=== PATIENT | male | born 1975 | race Caucasian/White ===

== ENCOUNTER 2018-01-03 22:03 | Inpatient (IN) ==
[2018-01-03 22:27] LABS: Basophils # 0.1 K/mcL (0.0-0.2); Basophils % 0.6 %; Eosinophils # 0.3 K/mcL (0.0-0.6); Eosinophils % 2.3 %; Hematocrit 45.6 % (37.5-50.1); Immature Granulocytes % 0.4 % (0-4); Lymphocytes # 3.2 K/mcL (0.6-4.6); Mean Corpuscular HGB Conc 35.1 g/dL (31.6-35.5); Mean Corpuscular Hemoglobin 31.2 pg (28.0-33.3); Mean Corpuscular Volume 88.9 fL (83.0-100.0); Mean Platelet Volume 9.9 fL (9.4-12.4); Monocytes # 0.8 K/mcL (0.0-1.3); Monocytes % 6.2 %; Platelet Count 266 K/mcL (140-400); Red Blood Count 5.13 M/mcL (4.19-5.50); Red Cell Distribution Width 13.3 % (11.5-14.5); Segmented Neutrophils % 64.5 %
[2018-01-03 22:56] LABS: BUN/Creatinine Ratio 11 (6-26); Blood Urea Nitrogen 12 mg/dL (6-20); Calcium 9.8 mg/dL (8.6-10.3); Carbon Dioxide 23 mEq/L (23-29); Chloride 105 mEq/L (98-107); Glucose 144 mg/dL (70-105); Osmolality,Calculated 288 (280-300); Potassium 3.3 mEq/L (3.5-5.1); Sodium 138 mEq/L (136-145); eGFR For Non-African Americans > 60 (> 60)
[2018-01-03 22:57] LABS: Troponin I 0.09 ng/mL (< 0.04)
[2018-01-03] MEDS ORDERED: Nitroglycerin 0.4 MG TAB.SUBL SL PRN (22:58)
[2018-01-03] MEDS ORDERED: Aspirin 81 MG TAB.CHEW PO ONE (22:58)
--- NOTE | 2018-01-03 22:58 | Emergency Department Note ---
Disposition Clinical Impression: Elevated troponin Chest pain Qualifiers: Chest pain type: unspecified Qualified Code(s): R07.9 - Chest pain, unspecified Disposition: Admitted As Inpatient Condition: Good Chest Pain HPI - General Chief Complaint: ED Chest Pain Stated Complaint: Chest Pains Time Seen by Provider: 01/03/18 22:06 Source: patient, family Mode of arrival: private vehicle Limitations: no limitations Vital Signs Reviewed: Yes Nursing Notes Reviewed: Yes - History of Present Illness HPI Narrative: 42-year-old male history of hypertension, reports prior TX without intervention to presents to the ER due to chest pain. Symptoms began around 8 PM this evening. States he was outside in the garden for less than an hour picking green beans. Symptoms across the top of his chest as a pressure. Denies any associated symptoms. No history of diabetes, hyperlipidemia. He does smoke. He was admitted in 2011 for chest pain without a left heart catheterization. No other complaints. Pt complaint: chest pain Onset (ago): hour(s) Time: 20:00 Duration: constant Onset: during rest Pain Location: substernal Severity: moderate Severity scale (1-10): 10 Quality: heaviness Pain Radiation: none Improves with: nothing Worsens with: nothing Associated symptoms: Denies: nausea, vomiting, diaphoresis, dyspnea Treatments prior to arrival chest pain: none - Related Data On Oral Contraceptives: No Allergies Allergy/AdvReac Type Severity Reaction Status Date / Time No Known Allergies Allergy Verified 11/20/16 20:47 All systems ED: reviewed and negative except as stated. Cardiovascular: Reports: chest pain Respiratory: Denies: dyspnea Gastrointestinal: Denies: abdominal pain, nausea, vomiting Chest Pain PMH - Past Medical History Medical history: Reports: hypertension - Social History Smoking Status: Current every day smoker Alcohol use: Reports: rarely Drug use: Reports: none Physical Exam - General Limitations: no limitations General appearance: alert, in no apparent distress - Head Head exam: atraumatic, normocephalic - Eye Eye exam: Present: normal appearance - ENT ENT exam: normal exam - Neck Neck exam: Present: normal inspection - Chest Chest inspection: Present: normal inspection, symmetric chest wall rise. Absent : tenderness - Respiratory Respiratory exam: Present: normal lung sounds bilaterally - Cardiovascular Cardiovascular exam: Present: regular rate, normal rhythm, normal heart sounds - Abdominal Exam Abdominal exam: Present: soft, Non-Tender. Absent: tenderness - Extremities Exam Extremities exam: Present: normal inspection, full ROM - Expanded Upper Extremity Exam Shoulder exam: Present: normal inspection, full ROM Arm exam: Present: normal inspection, full ROM Elbow exam: Present: normal inspection, full ROM Forearm/Wrist exam: Present: normal inspection, full ROM Hand exam: Present: normal inspection, full ROM - Expanded Lower Extremity Exam Hip/Pelvis exam: Present: normal inspection, full ROM Upper leg exam: Present: normal inspection, full ROM Knee exam: Present: normal inspection, full ROM Lower leg exam: Present: normal inspection, full ROM Ankle exam: Present: normal inspection, full ROM Foot/toe exam: Present: normal inspection, full ROM - Skin Skin exam: Present: warm, dry Course Course Narrative: Patient seen and examined. Vital signs reviewed. EKG, chest x-ray, labs including troponin. Aspirin and nitroglycerin. - Reevaluation(s) Reevaluation #1: Elevated troponin. Discussed with patient. Agreeable with staying. Admission to the hospital service. Vital Signs Temperature 97.5 F L 01/03/18 22:04 Pulse Rate 79 01/03/18 22:04 Respiratory Rate 20 01/03/18 22:04 Blood Pressure 205/98 01/03/18 22:04 O2 Sat by Pulse Oximetry 99 01/03/18 22:04 Temperature 97.5 F L 01/03/18 22:18 Pulse Rate 71 01/03/18 22:58 Respiratory Rate 16 01/03/18 22:58 Blood Pressure 149/85 01/03/18 22:58 O2 Sat by Pulse Oximetry 94 01/03/18 22:58 Oxygen Delivery Oxygen Delivery Room Air Chest Pain - Lab Data Lab results reviewed: Yes I reviewed the patient's lab results. Result diagrams: 01/03/18 22:10 01/03/18 22:10 Lab Results 01/03/18 01/03/18 Range/Units 22:10 22:10 WBC 12.4 H (4.3-11.1) K/mcL RBC 5.13 (4.19-5.50) M/mcL Hgb 16.0 (12.9-16.9) g/dL Hct 45.6 (37.5-50.1) % MCV 88.9 (83.0-100.0) fL MCH 31.2 (28.0-33.3) pg MCHC 35.1 (31.6-35.5) g/dL RDW 13.3 (11.5-14.5) % Plt Count 266 (140-400) K/mcL MPV 9.9 (9.4-12.4) fL Immature Gran % 0.4 (0-4) % Seg Neutrophils % 64.5 % Lymphocytes % 26.0 % Monocytes % 6.2 % Eosinophils % 2.3 % Basophils % 0.6 % Neutrophils # 8.0 (1.6-8.9) K/mcL Lymphocytes # 3.2 (0.6-4.6) K/mcL Monocytes # 0.8 (0.0-1.3) K/mcL Eosinophils # 0.3 (0.0-0.6) K/mcL Basophils # 0.1 (0.0-0.2) K/mcL Sodium 138 (136-145) mEq/L Potassium 3.3 L (3.5-5.1) mEq/L Chloride 105 (98-107) mEq/L Carbon Dioxide 23 (23-29) mEq/L BUN 12 (6-20) mg/dL Creatinine 1.10 (0.70-1.30) mg/dL Est GFR ( Amer) > 60 (> 60) Est GFR (Non-Af Amer) > 60 (> 60) BUN/Creatinine Ratio 11 (6-26) Glucose 144 H (70-105) mg/dL Calculated Osmolality 288 (280-300) Calcium 9.8 (8.6-10.3) mg/dL Troponin I 0.09 H* (< 0.04) ng/mL - Radiology Data Radiology results reviewed: Yes I reviewed the patient's radiology results. Chest X-Ray 01/03/18 22:07 IMPRESSION: Clear lungs. D/ / Terrell Alvarez MD / Terrell Alvarez MD Interpreting Provider: Terrell Alvarez MD - EKG Data EKG attestation: Yes I reviewed and interpreted this EKG. EKG results narrative: EKG demonstrates sinus rhythm with a rate of 78 bpm. Normal axis. Normal intervals. Normal R-wave progression. No gross ST elevations or depressions. No acute ischemic findings. No significant changes from prior EKG dated . Heart Score - Score History: Moderately Suspicious EKG: Normal Age: Less than 45 Risk Factors: 1-2 risk factors Troponin: 1-3x normal limit HEART Score Total: 3 S.B.A.R. - S.B.A.R. Situation: Demographics, MOA Background: Presenting Complaint, Relevant PMH, Meds, & Allergies Assessment: Vital Signs, Course and respsone to treatment, Exam Concerns, Patient/Family Expectation, Pertinant Lab Results Recommendation: Barrier(s) to disposition, Recommendation based on pending studies, treatments, or consults S.B.A.RKarol Report Given to: Dr. Imelda EscalanteBKarolAMike Repor Time: 01:04
--- NOTE | 2018-01-04 01:08 | Emergency Department Note ---
Disposition Clinical Impression: Elevated troponin Chest pain Qualifiers: Chest pain type: unspecified Qualified Code(s): R07.9 - Chest pain, unspecified Disposition: Admitted As Inpatient Condition: Good Referrals: Donya Kim MD [Primary Care Provider] - Forms: ED Satisfaction Letter General Adult HPI - General Chief complaint: ED Chest Pain Stated complaint: Chest Pains Time Seen by Provider: 01/03/18 22:06 Source: patient, family Mode of arrival: private vehicle Limitations: no limitations Nursing Notes Reviewed: Yes Vital Signs Reviewed: Yes - History of Present Illness Pain Scale: 10 - Related Data Allergies Allergy/AdvReac Type Severity Reaction Status Date / Time No Known Allergies Allergy Verified 11/20/16 20:47 Cardiovascular: Reports: chest pain Respiratory: Denies: dyspnea Gastrointestinal: Denies: abdominal pain, nausea, vomiting Past Medical History - Past Medical History Medical history: Reports: hypertension - Social History Smoking Status: Current every day smoker Smokeless Tobacco Status: No Alcohol use: Reports: rarely Drug use: Reports: none Physical Exam - General Limitations: no limitations General appearance: alert, in no apparent distress Course Vital Signs Temperature 97.5 F L 01/03/18 22:04 Pulse Rate 79 01/03/18 22:04 Respiratory Rate 20 01/03/18 22:04 Blood Pressure 205/98 01/03/18 22:04 O2 Sat by Pulse Oximetry 99 01/03/18 22:04 Temperature 97.5 F L 01/03/18 22:18 Pulse Rate 71 01/03/18 22:58 Respiratory Rate 16 01/03/18 22:58 Blood Pressure 149/85 01/03/18 22:58 O2 Sat by Pulse Oximetry 94 01/03/18 22:58 Oxygen Delivery Oxygen Delivery Room Air Medical Decision Making - Lab Data Lab results reviewed: Yes I reviewed the patient's lab results. Result diagrams: 01/03/18 22:10 01/03/18 22:10 Lab Results 01/03/18 01/03/18 Range/Units 22:10 22:10 WBC 12.4 H (4.3-11.1) K/mcL RBC 5.13 (4.19-5.50) M/mcL Hgb 16.0 (12.9-16.9) g/dL Hct 45.6 (37.5-50.1) % MCV 88.9 (83.0-100.0) fL MCH 31.2 (28.0-33.3) pg MCHC 35.1 (31.6-35.5) g/dL RDW 13.3 (11.5-14.5) % Plt Count 266 (140-400) K/mcL MPV 9.9 (9.4-12.4) fL Immature Gran % 0.4 (0-4) % Seg Neutrophils % 64.5 % Lymphocytes % 26.0 % Monocytes % 6.2 % Eosinophils % 2.3 % Basophils % 0.6 % Neutrophils # 8.0 (1.6-8.9) K/mcL Lymphocytes # 3.2 (0.6-4.6) K/mcL Monocytes # 0.8 (0.0-1.3) K/mcL Eosinophils # 0.3 (0.0-0.6) K/mcL Basophils # 0.1 (0.0-0.2) K/mcL Sodium 138 (136-145) mEq/L Potassium 3.3 L (3.5-5.1) mEq/L Chloride 105 (98-107) mEq/L Carbon Dioxide 23 (23-29) mEq/L BUN 12 (6-20) mg/dL Creatinine 1.10 (0.70-1.30) mg/dL Est GFR ( Amer) > 60 (> 60) Est GFR (Non-Af Amer) > 60 (> 60) BUN/Creatinine Ratio 11 (6-26) Glucose 144 H (70-105) mg/dL Calculated Osmolality 288 (280-300) Calcium 9.8 (8.6-10.3) mg/dL Troponin I 0.09 H* (< 0.04) ng/mL - Radiology Data Radiology results reviewed: Yes I reviewed the patient's radiology results. Chest X-Ray 01/03/18 22:07 IMPRESSION: Clear lungs. D/ / Terrell Alvarez MD / Terrell Alvarez MD Interpreting Provider: Terrell Alvarez MD - EKG Data EKG #1 EKG attestation: Yes I reviewed and interpreted this EKG. EKG results narrative: EKG shows a normal sinus rhythm with ventricular rate is 78. No acute ST segment elevation or depression noted. No arrhythmia or ectopy. Attestation Statement - Attestation Attestation: I, Steven Obregon MD, personally evaluated this patient and discussed their management with the resident physician. I reviewed the resident's note and agree with the documented findings, medical decision making, and plan of care. 42-year-old male presents to the emergency department with a complaint of some upper chest pain all across the upper chest which started about 8 PM this evening. The pain radiated to the upper arms bilaterally. He denies any shortness of breath. No nausea or diaphoresis. Patient states he does have a history of an SC in the past but has never had a cardiac catheter. He has a history of hypertension and is a smoker. He did have a stress test about 6 years ago. Symptom onset was while at rest. Patient received aspirin here the emergency department. He states the pain was mostly gone before he received the aspirin and shortly after the aspirin the pain totally resolved. He denies any pain at time of my examination. On examination patient is a well-developed obese male in no acute distress. He is alert and oriented 3. There is no cyanosis or diaphoresis. Chest is nontender to palpation. Breath sounds are clear and equal bilaterally. Heart regular rate and rhythm. Abdomen soft and nontender with normal bowel sounds. No pedal edema. No acute changes on EKG. Chest x-ray negative. Labs reviewed. Troponin 0.09. The hospitalist, Dr. Reddy, was consulted and accepted admission of the patient.
[2018-01-04] MEDS ORDERED: Potassium Chloride Elixir 20 MEQ/15 ML UDC PO ONE (02:04)
--- NOTE | 2018-01-04 03:22 | Internal Med History&Physical ---
Date of Encounter: 01/04/18 Time of Encounter: 03:19 Internal Medicine - H&P: HPI Chief complaint: chest pain Admitted From: Home Plans for Post Hospital Care: Home History of present illness: Mr. Hill is a 42 year old male who is a pack-a-day smoker for many years and has a history of high blood pressure that has been poorly controlled presented to the emergency room with a complaint of acute onset chest pain after working in the garden and sitting down to rest. He describes the pain as a generalized chest pressure with no triggering factor and was relieved by the time he came to the emergency room. It was not accompanying dyspnea or diaphoresis, fever or chills, cough or abdominal pain, nausea or vomiting. In the ER he received 325 mg of aspirin though his chest pain had resolved and did not require sublingual nitroglycerin. He was seen to have elevated blood pressure was systolic of 205 and a mildly elevated serum troponin of 0.09. His EKG did not show some ST segment depression or T-wave inversions. Time of assessment he was sitting out of bed to chair dislike stretched out stating that his chest pain resolved ever since arrival and he felt fine. He states this has happened to him in the past many years ago at which time he was told he may have had a heart attack and had multiple tests done which he cannot specify at this time. He reports adherence to his antihypertensives although he cannot specify what they are. Past Med Surg Social Fam HX - Past Medical History Medical history: hypertension - Past Surgical History Additional surgical history: Left Hand (index finger) - Social History Smoking Status: Current every day smoker Packs per day: 1 Smokeless Tobacco Status: Yes (Occasionaly) Alcohol use: rarely Drug use: none Internal Medicine - H&P: Meds 3 Allergy/AdvReac Type Severity Reaction Status Date / Time No Known Allergies Allergy Verified 11/20/16 20:47 All Systems PM: A 10-system review of systems was performed and is negative for pertinent findings except as documented above in the HPI. - Constitutional Vitals: Temp Pulse Resp BP Pulse Ox 98.2 F 63 17 165/87 95 01/04/18 02:45 01/04/18 02:45 01/04/18 02:45 01/04/18 02:45 01/04/18 02:45 Exam: Vitals: Reviewed General: Obese male sitting comfortably in bed in no acute distress Skin: No lesions or ulcers HEENT: Moist mucous membranes. No conjunctivae pallor. Neck: No lymphadenopathy. No JVD. No carotid bruits. No palpable thyroid. Chest: Normal thoracic expansion. Normal breath sounds. Clear to auscultation. Heart: Normal S1 & S2; rhythmic. No rubs or murmurs. Abdomen: Non-distended, soft and non-tender to palpation. No peritoneal reaction. Liver is normal in size. Spleen is not palpable. Extremities: No clubbing, cyanosis or edema. No calf tenderness. Normal distal pulses. Neurological: Awake, alert and oriented to person, place and time. No focal deficits. Psych: Affect appropriate and coherent speech Internal Med - H&P Results - Labs CBC & Chem 7: 01/03/18 22:10 01/03/18 22:10 - EKG Data -: EKG Interpreted by Myself EKG shows normal: sinus rhythm Rate: normal - EKG Data Prior EKG available for review: yes - Assessment and plan (1) Chest pain Current Visit: Yes Status: Acute Assessment and plan: The chest pain resolved on its own without intervention and corresponded with lowering of his blood pressure. His EKG does not show acute signs of ischemia however given his comorbidities, we should continue to observe. At this time is clinically and hemodynamically stable -Repeat a serum troponin to assess value and EKG as well -Monitor telemetry -We will obtain a transthoracic echo -The patient should probably have a stress test done at some point. -Loading dose aspirin given Qualifiers: Chest pain type: unspecified Qualified Code(s): R07.9 - Chest pain, unspecified (2) Elevated troponin Current Visit: Yes Status: Acute Assessment and plan: Unclear if related to acute coronary syndrome which seems less likely or more so the hypertensive emergency state he presented in which may have led to myocardial demand ischemia. -Indicated above continue to monitor and trend. -No indication for antithrombotic therapy at this time. -Place on telemetry. (3) Hypertensive emergency Current Visit: Yes Status: Acute Assessment and plan: Evidence of systolic values above 200 associated with chest pain and troponin elevation can constitute a Hypertensive Emergency. His blood pressures have responded well now without acute intervention. We will place him on oral medications to continue as of the morning. (4) Obesity (BMI 30-39.9) Current Visit: Yes Status: Chronic Assessment and plan: Therapeutic lifestyle education provided (5) Tobacco dependence Current Visit: Yes Status: Chronic Assessment and plan: Counseled on the need to quit and resources available to assist with this endeavor. (6) DVT prophylaxis Current Visit: Yes Status: Acute Assessment and plan: Subcutaneous heparin ordered - Time Spent With Patient Total time spent is greater than 50% in coordination of care (as documented) at patient's floor/unit and/or counseling patient: 25 - 35 minutes
[2018-01-04 05:37] LABS: Basophils # 0.1 K/mcL (0.0-0.2); Basophils % 0.6 %; Eosinophils # 0.2 K/mcL (0.0-0.6); Eosinophils % 2.2 %; Hematocrit 43.8 % (37.5-50.1); Immature Granulocytes % 0.4 % (0-4); Lymphocytes # 4.3 K/mcL (0.6-4.6); Lymphocytes % 41.3 %; Mean Corpuscular HGB Conc 32.9 g/dL (31.6-35.5); Mean Corpuscular Hemoglobin 29.3 pg (28.0-33.3); Mean Platelet Volume 9.8 fL (9.4-12.4); Monocytes # 0.9 K/mcL (0.0-1.3); Monocytes % 8.7 %; Neutrophils # 4.9 K/mcL (1.6-8.9); Platelet Count 262 K/mcL (140-400); Red Blood Count 4.92 M/mcL (4.19-5.50); Red Cell Distribution Width 13.6 % (11.5-14.5); Segmented Neutrophils % 46.8 %
[2018-01-04 05:38] LABS: Hemoglobin 14.4 g/dL (12.9-16.9); Prothrombin Time 11.8 Seconds (9.4-12.1)
[2018-01-04 05:41] LABS: Activated Partial Thrombo Time 32.4 Seconds (26.0-36.0)
[2018-01-04 06:00] LABS: BUN/Creatinine Ratio 11 (6-26); Blood Urea Nitrogen 11 mg/dL (6-20); Calcium 9.1 mg/dL (8.6-10.3); Carbon Dioxide 25 mEq/L (23-29); Chloride 107 mEq/L (98-107); Glucose 103 mg/dL (70-105); Osmolality,Calculated 292 (280-300); Potassium 3.6 mEq/L (3.5-5.1); Sodium 141 mEq/L (136-145); Troponin I 16.83 ng/mL (< 0.04); eGFR For Non-African Americans > 60 (> 60)
[2018-01-04] MEDS ORDERED: *HR* Heparin 5,000 UNIT/ML VIAL IVP ONE (06:07)
[2018-01-04] MEDS ORDERED: *HR* Heparin 5,000 UNIT/ML VIAL IVP PRN ×2 (06:07)
[2018-01-04] MEDS ORDERED: Heparin 25,000 UNIT/500 ML D5W 25,000 UNIT/500 ML BAG IVC SCH (06:15)
--- NOTE | 2018-01-04 06:24 | Event Note ---
Date of Encounter: 01/04/18 Time of Encounter: 06:19 Unfortunately the patient's serum troponin has significantly increased in spite of being chest pain free and improved blood pressure parameters. Subsequent review of his EKG is concerning for a possible J point elevation in V2 and V3 not seen on his prior however it is difficult for me to discern completely. I assessed the patient and he was sleeping comfortably. He reports not having any chest pain or dyspnea since his admission. His vitals are stable. Review of his twist tester shows a regular heart rate in sinus rhythm. We discussed the new findings and he expressed understanding. -Will administer high dose statin and start heparin gtt per [facility] protocol. -Repeat EKG to be obtained. -Echo has already been ordered and cardiology consult placed.
--- NOTE | 2018-01-04 06:43 | Event Note ---
Date of Encounter: 01/04/18 Time of Encounter: 06:39 Repeat EKG done while the patient is sleeping is reviewed; heart rate of 56 with normal sinus rhythm. New T-wave inversions noted in V2; other leads appear without abnormalities.
[2018-01-04 07:17] LABS: Estimated Average Glucose 126 mg/dl
--- NOTE | 2018-01-04 08:40 | Cardiology Consult Note ---
Date of Encounter: 01/04/18 Time of Encounter: 08:00 Assessment and Plan (1) NSTEMI (non-ST elevated myocardial infarction) Current Visit: Yes Status: Acute Patient presents with NSTEMI. Troponin elevated up to 16.83. EKG completed last night showed inferior ST depression and elevation in V2 but no other leads. Cardiac risk factors include HTN, Tobacco use, and family history (father with PR in his 40's). [facility] recommended. C R/B/A reviewed and he agrees to proceed. Continue heparin gtt. Asa, statin, and bb. Check TTE. (2) Hypertensive emergency Current Visit: Yes Status: Acute B/p improved. Denies missed doses of anti-hypertensives. Restart home medications. (3) Obesity (BMI 30-39.9) Current Visit: Yes Status: Chronic (4) Tobacco dependence Current Visit: Yes Status: Chronic Smoking cessation. Discussion w patient/family: The assessment and plan as outlined above was discussed with the patient and/or family members who expressed understanding and agreement. All questions were answered. Thank you for involving us in the care of your patient. Please call with any questions. History of Present Illness Consult date: 01/04/18 Requesting physician: Jared Avila Consult reason: Chest pain, NSTEMI Chief complaint: Chest pain, diaphoresis History of present illness: Mr. Hill is a 42 year old male with past medical history of HTN and tobacco abuse who presents with chest pain. He was working in his garden during the day with no problem. When he sat down that evening he developed midsternal chest discomfort. His pain continued for 2 hours and then he presented to the ED. The pain resolved on its own. He states he was excessively sweating in the ED. Last night he did have recurrent chest discomfort. His EKG showed changes concerning for ischemia. Repeat EKG showed changes did resolve. Troponin was found to be elevated. His blood pressure was found to be elevated up to 200/100. Cardiology consulted for NSTEMI. He states that he had a PR in 2010, but does not remember testing. Upon further review of records he did undergo stress test at that time that was found to be negative. Past Med Surg Social Fam HX - Past Medical History Attestation: Yes The following information was validated with the patient. Medical history: hypertension - Past Surgical History Additional surgical history: Left Hand (index finger) - Social History Smoking Status: Current every day smoker Packs per day: 1 Smokeless Tobacco Status: Yes (Occasionaly) Alcohol use: rarely Drug use: none Medications and Allergies 3 Allergy/AdvReac Type Severity Reaction Status Date / Time No Known Allergies Allergy Verified 11/20/16 20:47 All Systems Review: The remainder of the systems were reviewed and are negative Physical Examination Vital Signs, Last 4 Hours Temp Pulse Resp BP Pulse Ox 01/04/18 08:29 98.2 F 63 18 157/89 96 General: Conversant, No Apparent Distress HEENT: Atraumatic, Normocephaly, Mucus Membranes Moist Neck: No JVD, Normal carotid pulses Cardiac: Reg Rate and Rhythm, Normal S1 and S2, No Murmur Lungs: Normal Breath Sounds, No Wheeze, Rales, Rhonchi Neuro: Alert and responsive, No focal deficits noted Abdomen: Soft, Non-Tender Skin: No rashes noted on visualized skin Musculoskeletal: No Chest Wall Tenderness Extremities: No Clubbing, No Cyanosis, No Edema, Normal Pulses Results 01/04/18 05:03 01/04/18 05:03 Lab Results 01/04/18 01/04/18 01/04/18 05:03 05:03 05:03 WBC 10.5 Hgb 14.4 D Hct 43.8 Plt Count 262 INR 1.0 APTT 32.4 Sodium 141 Potassium 3.6 Chloride 107 Carbon Dioxide 25 BUN 11 Creatinine 0.96 Glucose 103 Calcium 9.1 Troponin I 16.83 H* - Imaging and Cardiology Chest Xray: report reviewed Echo: pending - EKG Interpretation EKG results cardiology: personally reviewed Consult Discharge Plan - Plan Referrals: Donya Kim MD [Primary Care Provider] -
[2018-01-04] MEDS: Aspirin 81 MG TAB.CHEW PO SCH (08:57)
[2018-01-04] MEDS: Valsartan 160 MG, hydroCHLOROthiazide 25 MG PO SCH (08:57)
[2018-01-04] MEDS ORDERED: *HR* Ticagrelor 90 MG TABLET PO ONE (09:30)
--- NOTE | 2018-01-04 09:40 | Pre-Sedation Evaluation ---
Pre-sedation evaluation - Pre-sedation checklist Date of procedure: 01/04/18 Procedure: [facility] Recent Vitals: Last Vital Signs Temp 98.2 F 01/04/18 08:29 Pulse 63 01/04/18 08:29 Resp 18 01/04/18 08:29 BP 157/89 01/04/18 08:29 Pulse Ox 96 01/04/18 08:29 H&P (including ROS) documented in medical record: Yes Previous reaction to sedatives/anesthetics: No Dietary Status: NPO after Midnight Airway Assessment: Patient can open mouth completely, TMJ function normal, Micrognathia (under-bite, receding chin) absent, Neck with adequate range of motion Dentition: No loose teeth or bridges Possible difficult airway: No ASA Classification *see protocol: CLASS II-Mild systemic disease Plan of Care: Pt appropriate candidate for procedure/moderate/conscious sedation , Risks/benefits of procedure/sedation discussed w/ patient/family Cardiac Registry (Cardio Only) - Functional Capacity Functional Capacity: < 4 METS - Clincal Frailty Scale Clinical Frailty Scale: Vulnerable
[2018-01-04] MEDS ORDERED: *HR* Heparin 10,000 UNIT/10 ML VIAL ONE (09:59)
[2018-01-04] MEDS ORDERED: 0.9 % Sodium Chloride 1,000 ML ONE ×2 (09:59→10:57)
[2018-01-04] MEDS ORDERED: Heparin 1,000 UNITS/500 mL 500 ML ONE (09:59)
[2018-01-04] MEDS ORDERED: ISOVUE-370 200 ML INFUS..BTL IV ONE ×2 (10:00→11:26)
[2018-01-04] MEDS ORDERED: Nitroglycerin 1,000 MCG/10 ML VIAL IV ONE (10:00)
--- NOTE | 2018-01-04 10:15 | Event Note ---
Date of Encounter: 01/04/18 Time of Encounter: 10:14 Seen at the bedside Being managed for NSTEMI No active chest pain for cardio eval and LHC, continue current trt
[2018-01-04] MEDS ORDERED: *HR* FentaNYL (PF) 100 MCG/2 ML VIAL ONE (10:56)
[2018-01-04] MEDS ORDERED: *HR* Midazolam HCl 5 MG/5 ML VIAL IVP ONE (10:57)
[2018-01-04] MEDS ORDERED: *HR* Bivalirudin 250 MG VIAL IVC ONE (11:03)
[2018-01-04] MEDS ORDERED: Acetaminophen 325 MG TABLET PO PRN (12:23)
--- NOTE | 2018-01-04 12:23 | Invasive Diagnostic Lab Proc ---
Name: Sebastian Hill Date of Study: 01/04/2018 Date: 1975 Ht: 68.1in Medical Record#: [id number] Age: 42 Wt: 256.62lb Gender: Male BSA: 2.27 Order #: [id number] BMI: 38.89 Physicians Procedure Physician: Laya Cuadra [facility], [facility] Referring MD: Donya Kim MD Referring MD: Staff Name Position Time In Mundo Ureña RN Monitor 10:54 AM Gia Cash RT (R) Scrub 10:54 AM Eddy Rankin RN Rotary Envelope Machine Operator 10:54 AM Indications Indication Non-Stemi Procedures Performed Procedure L HRT ARTERY/VENTRICLE ANGIO Pre-Procedure Checklist Informed consent is complete signed and on chart. H&P is on chart. ID band is on and ID verified with patient. Patient NPO for procedure The procedure was described for the patient and questions were answered. Blood Pressure: 190/108 ECG is on chart. Rhythm: NSR Plan of Care Patient will tolerate the procedure without complications. Adequate level of comfort will be maintained. Hemodynamics will remain stable Patient will recover from procedure without complications. Respiratory function will be maintained. Cardiac rhythm will remain stable. Patient temperature will be maintained. Patient and/or family have verbalized understanding of the procedure. Patient Education Chief Complaint/Reason for Test: Cardiac Cath Developmental Category: Adult (18-64 years) Developmentally Appropriate for Age: Yes Learning Barriers: None Education Needs: Procedure Education Method: Verbal Information Taught: Cardiac Cath Educational Evaluation: Able to repeat information Intravenous Access Time IV Size Location DC'd Fluid/Drip Rate Units RN 11:07 AM 18g 1 /" Patent On Arrival Rt Antecubital 0.9NaCl 25 ml/hr Mundo Ureña RN Allergies NKA No Known Allergies Vital Signs Time BP (mmHg) HR (bpm) O2 Sat. RR (bpm) LOC 10:56 AM 190 / 108 75 100 % 18 5 = Fully awake and oriented or at pre-proc level 10:56 AM / % 4 = Oriented but drowsy 11:11 AM / % 4 = Oriented but drowsy 11:26 AM / % 4 = Oriented but drowsy 11:04 AM 190 / 108 75 100 % 18 11:08 AM 156 / 79 66 97 % 28 Procedural Medications Time Medication Dose Units Method Given By 10:55 AM Oxygen 2 L/min nasal cannula Eddy Rankin RN 10:59 AM Versed 2 mg Intravenous Eddy Rankin RN 10:59 AM Fentanyl 50 mcg Intravenous Eddy Rankin RN 11:11 AM Benadryl 25 mg Intravenous Eddy Rankin RN 11:14 AM Lidocaine 2% 9 ml Subcutaneous Laya Cuadra MD, FACC 11:20 AM Angiomax 0.75mg/kg bolus: 17 ml Intravenous Eddy Rankin RN 11:22 AM Angiomax 1.75mg/kg/hr: 40.6 ml/hr Intravenous Eddy Rankin RN ASA Classification: CLASS II- Mild systemic disease (i.e. well-controlled diabetes, hypertension, asthma, cigarette smoking) Yohan Score Preprocedure Postprocedure Activity 2- Moves 4 extremities sustained head lift Activity 2- Moves 4 extremities sustained head lift Circulation 2- SBP +/= 20 points of pre-anesthetic level Circulation 2- SBP +/= 20 points of pre-anesthetic level Consciousness 2- Awake and alert oriented x 3 Consciousness 2- Awake and alert oriented x 3 O2 Saturation 2- Able to maintain O2 satruation of 92% on room air O2 Saturation 2- Able to maintain O2 satruation of 92% on room air Respiratory 2- Able to deep breathe and cough well Respiratory 2- Able to deep breathe and cough well Total Score 10 Total Score 10 Contrast Agent: Isovue Diagnostic Contrast: 111 ml Total Contrast: 111 ml Fluoro Dose: 35508 mGy Procedure Log Time Note Enter By 10:43 AM CathStat 10:54 AM Pt arrived to slabbing machine operator 2 at 10:54 cedwards 10:54 AM Mundo Ureña RN Position: Monitor Time in: 10:54 cedwards 10:54 AM Gia Cash RT (R) Position: Scrub Time in: 10:54 cedwards 10:55 AM Eddy Rankin RN Position: Rotary Envelope Machine Operator Time in: 10:54 cedwards 10:55 AM Patient charges- Angio tray pack, Navilyst 3mm J, Pulse Oximetry and ACIST tubing and transducer cedwards 10:55 AM Case Start 10:55 AM Hair removed from procedure site in procedure lab using clippers. Bilateral groin prepped with Chloraprep by Eddy Rankin RN, then patient was draped. Skin intact. cedwards 10:55 AM Physician arrived 10:55 cedwards 10:55 AM Sign in performed according to hospital policy. cedwards 10:55 AM Time: 10:55 Oxygen on at 2 L/min per nasal cannula by Eddy Rankin RN cedwards 10:56 AM Time: 10:56 Patient comfortable and pain free: Yes csmith 10:56 AM Time: 10:56LOC: 5 = Fully awake and oriented or at pre-proc level csmith 10:57 AM ASA Class CLASS II- Mild systemic disease (i.e. well-controlled diabetes, hypertension, asthma, cigarette smoking) csmith 10:59 AM Time: 10:59 Versed 2 mg Intravenous Given by Eddy Rankin RN csmith 10:59 AM Time: 10:59 Fentanyl 50 mcg Intravenous Given by Eddy Rankin RN csmith 11:02 AM NIBP STAT measurement started. 11:02 AM Recorded ECG: HR=67 Condition=Condition 1 11:04 AM HR=75 bpm, ZBPA=498/108 mmhg, JxM9=461.0 %, Resp=18 B/min, Comment=sr 11:07 AM NIBP STAT measurement started. 11:08 AM HR=66 bpm, ZEBC=567/79 mmhg, SpO2=97.0 %, Resp=28 B/min, Comment=sr 11:09 AM Time out performed according to hospital policy csmith 11:09 AM Procedure start 11:09 csmith 11:11 AM Time: 10:56LOC: 4 = Oriented but drowsy csmith 11:11 AM Time: 10:56 Patient comfortable and pain free: Yes [facility] 11:11 AM Time: 11:11 Benadryl 25 mg Intravenous Given by Eddy Rankin RN [facility] 11:14 AM Time: 11:14 9 ml Lidocaine 2% to right groin Subcutaneous Given by Laya Cuadra MD, [facility] 11:14 AM Access obtained by percutaneous puncture. 5Fr 10cm Terumo Orange sheath placed in right Femoral artery. [id number] [facility]x [facility] 11:14 AM 5Fr FL 4 catheter inserted over the wire [facility] 11:14 AM 0.035 145cm Navilyst 3mmJ wire [id number] [facility] 11:15 AM Recorded Pressure: Ao, HR=65, Condition=Condition 1 (Aorta) Ao 163/91/120 11:15 AM Recorded Pressure: Ao, HR=60, Condition=Condition 1 (Aorta) Ao 147/89/114 11:15 AM LCA angiography performed in multiple views. csmith 11:16 AM Recorded Pressure: Ao, HR=60, Condition=Condition 1 (Aorta) Ao 135/78/102 11:16 AM Pressure channel 1 zero failed. 11:16 AM Pressure channel 1 zero failed. 11:17 AM Pressure channel 1 zero failed. 11:17 AM Pressure channel 1 zeroed. 11:17 AM Catheter removed csmith 11:17 AM 5Fr FR 4 catheter inserted over the wire [facility] csmith 11:18 AM Coronary Dominance: right csmith 11:18 AM Lesion found in Distal RCA. Pre Stenosis: 100 Pre JAE Flow: 0: No Flow/No perfusion csmith 11:18 AM Catheter removed csmith 11:18 AM PCI Status Urgent csmith 11:19 AM Pressure channel 1 zeroed. 11:19 AM Recorded Pressure: LV, HR=67, Condition=Condition 1 (Left Ventricle) LV 133/11/12 11:20 AM Recorded Pressure: LV, Ao, HR=66, Condition=Condition 1 (Left Ventricle) LV 125/25/35, (Aorta) Ao 120/73/96 11:20 AM 5Fr Pigtail catheter inserted over the wire [facility] csmith 11:20 AM Catheter selectively placed in left ventricle csmith 11:20 AM Bolus angiogram of left Ventricle complete: 8 ml/sec for a total of 24 mls csmith 11:20 AM Time: 11:20 Angiomax 0.75mg/kg bolus: 17 ml Intravenous Given by Eddy Rankin RN Vaz pump csmith 11:20 AM Catheter removed csmith 11:21 AM Sheath exchanged for a 6 Fr 11 cm Cordis Effie sheath [id number] csmith 11:22 AM 6Fr JR 4 [place] Bright-Tip guide catheter was used to cannulate the PCI vessel successfully. reused? No csmith 11:22 AM Time: 11: Angiomax 1.75mg/kg/hr: 40.6 ml/hr Intravenous Given by Eddy Rankin RN Vaz pump csmith 11:22 AM Inflation device was opened. csmith 11:24 AM Recorded Pressure: Ao, HR=64, Condition=Condition 1 (Aorta) Ao 132/77/102 11:24 AM .014 Prowater 180cm guide wire across target lesion- unsuccessful. reused? No csmith 11:26 AM Time: 11:11 Patient comfortable and pain free: Yes csmith 11:26 AM Time: 11:11LOC: 4 = Oriented but drowsy csmith 11:28 AM 2.0 mm x 15 mm Emerge Monorail balloon across target lesion- unsuccessful. reused? No csmith 11:30 AM Recorded Pressure: Ao, HR=66, Condition=Condition 1 (Aorta) Ao 132/75/100 11:30 AM Balloon catheter removed intact and unused csmith 11:32 AM Guide wire removed intact. csmith 11:32 AM .014 ChoICE PT Extra Support 300cm guide wire across target lesion- unsuccessful. reused? No csmith 11:32 AM 1.5 mm x 8 mm Mini Trek OTW balloon across target lesion- unsuccessful. reused? No csmith 11:36 AM Recorded Pressure: Ao, HR=60, Condition=Condition 1 (Aorta) Ao 116/75/96 11:38 AM wire removed intact csmith 11:40 AM balloon removed intact csmith 11:41 AM .014 ChoICE PT Extra Support 300cm guide wire across target lesion- successful. reused? No and 1.5 * 8 balloon reinserted csmith 11:41 AM Time: 11:26LOC: 4 = Oriented but drowsy csmith 11:41 AM Time: 11:26 Patient comfortable and pain free: Yes csmith 11:44 AM Recorded Pressure: Ao, HR=64, Condition=Condition 1 (Aorta) Ao 133/90/111 11:45 AM wire and balloon removed intact, guide catheter removed intact csmith 11:45 AM reviewing films csmith 11:49 AM Bolus angiogram of right Femoral complete: 4 ml/sec for a total of 7 mls csmith 11:49 AM angiomax gtt off at this time cox [facility] 11:49 AM Procedure completed at 11:49 01/04/2018 csmith 11:49 AM Did you address JAE flow and Dominance? Yes csmith 11:52 AM Sign out completed: Radiation Dose 1031 mGy, 27596 cGy/cm2 Fluoro Time: 14 Isovue 370 - 200ml contrast 111 ml given by Laya Cuadra MD, [facility]. Complications: NoneCardiac Rehab Consult needed: YesConfirmed administered medications: Yes csmith 11:52 AM Isovue 370 - 200ml,2 Bottle(s) used. csmith 11:52 AM Sheath left in place to be pulled on floor/holding area csmith 11:52 AM Estimated Blood Loss: minimal csmith 11:52 AM Post ECG NSR csmith 11:52 AM Post Blood Pressure 156/79 csmith 11:52 AM 11:52 Post Pulses Bilateral DP 2+ csmith 11:52 AM Information taught Cardiac Cath csmith 11:52 AM Education needs Responsibilities of Patient in Care csmith 11:52 AM Learning barriers :None csmith 11:52 AM Education Methods Verbal csmith 11:52 AM Education evaluation Able to repeat information csmith 11:52 AM Site status No bleeding/hematoma - Rt Groin as reported by Gia Cash RT (R) at 11:52 csmith 11:53 AM Opsite applied csmith 11:53 AM Plavix, Effient or Brilinta given No csmith 11:53 AM Family placed in consult room. csmith 11:53 AM Lesion found in Proximal RCA. Pre Stenosis: 50 Pre JAE Flow: 3: Complete and Brisk Flow/Perfusion csmith 11:53 AM Lesion found in Mid RCA. Pre Stenosis: 50 Pre JAE Flow: 3: Complete and Brisk Flow/Perfusion csmith 11:53 AM Lesion found in Proximal LAD. Pre Stenosis: 25 Pre JAE Flow: 3: Complete and Brisk Flow/Perfusion csmith 11:53 AM Lesion found in Mid LAD. Pre Stenosis: 30 Pre JAE Flow: 3: Complete and Brisk Flow/Perfusion csmith 11:53 AM Lesion found in 2nd Diagonal. Pre Stenosis: 99 Pre JAE Flow: 3: Complete and Brisk Flow/Perfusion csmith 11:54 AM Lesion found in Proximal Circumflex. Pre Stenosis: 40 Pre JAE Flow: 3: Complete and Brisk Flow/Perfusion csmith 11:54 AM Lesion found in Mid Circumflex. Pre Stenosis: 30 Pre JAE Flow: 3: Complete and Brisk Flow/Perfusion csmith 11:54 AM Lesion found in 1st Marginal. Pre Stenosis: 30 Pre JAE Flow: 3: Complete and Brisk Flow/Perfusion csmith 11:54 AM Lesion found in 2nd Marginal. Pre Stenosis: 40 Pre JAE Flow: 3: Complete and Brisk Flow/Perfusion csmith 11:54 AM Coronary Dominance: right csmith 12:00 PM Report given to Toni THOMAS Pt will be taken to ICU (as 2N overflow) Room #11. csmith Complications Complication None Hemodynamics Pressures Site Systolic/A Wave Diastolic/V Wave Mean AO 163 91 120 LV 133 11 12 LV 125 25 35 AO 120 73 96 AO 147 89 114 AO 135 78 102 AO 132 77 102 AO 132 75 100 AO 116 75 96 AO 133 90 111 Post Procedure Information Blood Pressure: 156/79 mmHg Rhythm: NSR Post procedural instructions were given Closure Device Time Device Success/Fail Manual Compression Site Checks Time Location Status Staff Sheath In? Note 11:52 AM Rt Groin No bleeding/hematoma Gia Cash RT (R) Pulses Time Site Pre-Procedure Post-Procedure Note 01/04/2018 11:07:00 AM Bilateral DP & PT 2+ 01/04/2018 11:07:00 AM Bilateral radial 2+ 11:52:00 AM Bilateral DP 2+ Updated by Eddy Rankin RN on 01/04/2018 12:16:42 PM electronically signed on 01/04/2018 12:17:08 PM with status of Final
[2018-01-05] MEDS: Valsartan 160 MG, hydroCHLOROthiazide 25 MG PO SCH (08:57)
[2018-01-05] MEDS: Aspirin 81 MG TAB.CHEW PO SCH (08:57)
--- NOTE | 2018-01-05 09:50 | Cardiology Progress Note ---
Date of Encounter: 01/05/18 Time of Encounter: 08:30 Assessment and Plan (1) NSTEMI (non-ST elevated myocardial infarction) Current Visit: Yes Status: Acute Patient presents with NSTEMI. Troponin elevated up to 16.83. EKG completed last night showed inferior ST depression and elevation in V2 but no other leads. 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 The LMCA is angiographically free of disease. 25% stenosis in the Proximal LAD. 30% stenosis in the Mid LAD. There is a 99% stenosis in the 2nd Diagonal (ostial portion). 40% stenosis in the Proximal Circumflex. 30% stenosis in the Mid Circumflex. 30% stenosis in the 1st Marginal. 40% stenosis in the 2nd Marginal. 50% stenosis in the Proximal RCA. 50% stenosis in the Mid RCA. 100% stenosis in the Distal RCA- suspect FEED MILL OPERATOR. R PDA/R PAV segment fill via L to R collaterals. There was no complication from the procedure. Denies recurrent chest pain. No complications from right femoral access site. Importance of DAPT with asa and plavix uninterrupted for minimum of one year discussed and he voiced understanding. Continue statin and BB. On higher dose bb at home. Will not increase at this time due to bradycardia- HR 50's . Add imdur. NTG SL PRN. Activity restrictions reviewed as stated above.Cardiac rehab ordered. Cardiology will sign off if no significant abnormal finding on TTE. Out-pt f/u will be coordinated by [facility]. (2) Hypertensive emergency Current Visit: Yes Status: Acute B/p improved. Denies missed doses of anti-hypertensives. Re-start norvasc and continue bb. (3) Obesity (BMI 30-39.9) Current Visit: Yes Status: Chronic (4) Tobacco dependence Current Visit: Yes Status: Chronic Smoking cessation. Discussion w patient/family: The assessment and plan as outlined above was discussed with the patient and/or family members who expressed understanding and agreement. All questions were answered. Thank you for involving us in the care of your patient. Please call with any questions. Subjective Principal diagnosis: NSTEMI Interval history: Mr. Hill denies recurrent chest pain. No problem noted with right radial access site. Objective Vital Signs, Last 4 Hours Temp Pulse Resp BP Pulse Ox 01/05/18 08:00 98.8 F 89 16 163/104 99 General: Conversant, No Apparent Distress HEENT: Atraumatic, Normocephaly, Mucus Membranes Moist Neck: No JVD, Normal carotid pulses Cardiac: Reg Rate and Rhythm, Normal S1 and S2, No Murmur Lungs: Normal Breath Sounds, No Wheeze, Rales, Rhonchi Neuro: Alert and responsive, No focal deficits noted Abdomen: Soft, Non-Tender Skin: No rashes noted on visualized skin Musculoskeletal: No Chest Wall Tenderness Extremities: No Clubbing, No Cyanosis, No Edema, Normal Pulses Results 01/04/18 05:03 01/04/18 05:03 - Imaging and Cardiology Echo: pending - EKG Interpretation EKG results cardiology: personally reviewed Consult Discharge Plan - Plan Referrals: Donya Kim MD [Primary Care Provider] -
[2018-01-05] MEDS ORDERED: amLODIPine 5 MG TABLET PO SCH (10:00)
[2018-01-05] MEDS ORDERED: Isosorbide MONOnitrate (24 HR) 30 MG TAB.ER.24H PO SCH (10:00)
--- NOTE | 2018-01-05 15:16 | Discharge Summary ---
<Glen Rocha R - Last Filed: 01/05/18 15:54> - NOTES TO OUTPATIENT PROVIDER Notes to Outpatient Provider: New medications: Aspirin, Plavix, increase Lipitor , lower metoprolol, Imdur, sublingual nitroglycerin Orders not resulted at time of discharge: TTE not resulted yet - f/u for results Date of Encounter: 01/05/18 Time of Encounter: 15:13 - Discharge Diagnosis (1) NSTEMI (non-ST elevated myocardial infarction) Priority: Primary Status: Acute (2) Hypertensive emergency Priority: Secondary Status: Acute (3) Obesity (BMI 30-39.9) Priority: Secondary Status: Chronic (4) Tobacco dependence Priority: Secondary Status: Chronic Hospital course: Mr. Hill is a 42 year old male with PMH of hypertension and tobacco use presented with acute onset of chest pain and admitted for NSTEMI. His chest pain had resolved prior to presentation. Cardiac catheterization revealed complete total occlusion of the distal RCA with good collaterals, mild to moderate CAD remaining 25-30% stenosis is LAD (99% in 2nd diagonal), 30-40% stenosis in CIRC. Cardiology recommended optimal medical management. He is to maintain on dual antiplatelet therapy with aspirin and Plavix uninterrupted for 1 year. Statin, BB, CCB, and Imdur per cardiology. Nitro sl PRN. Cardiac rehabilitation ordered and will follow up with cardiology as an outpatient. Discharge discussed with: patient, family - Time Spent with Patient Total time spent providing and/or coordinating discharge services: - Discharge Medications Prescriptions: amLODIPine [Norvasc] 5 mg PO DAILY #30 tablet Aspirin 81 mg PO DAILY #30 tab.chew Atorvastatin [Lipitor] 80 mg PO HS #30 tablet Clopidogrel [Plavix] 75 mg PO DAILY #30 tablet Isosorbide MONOnitrate (24 HR) [Imdur] 30 mg PO DAILY #30 tab.er.24h Metoprolol [Lopressor] 25 mg PO BID #60 tablet Home Medications: Valsartan 320 mg PO DAILY 01/04/18 [History] Aspirin 81 mg PO DAILY #30 tab.chew 01/05/18 [Rx] Atorvastatin [Lipitor] 80 mg PO HS #30 tablet 01/05/18 [Rx] Clopidogrel [Plavix] 75 mg PO DAILY #30 tablet 01/05/18 [Rx] Isosorbide MONOnitrate (24 HR) [Imdur] 30 mg PO DAILY #30 tab.er.24h 01/05/18 [ Rx] Metoprolol [Lopressor] 25 mg PO BID #60 tablet 01/05/18 [Rx] amLODIPine [Norvasc] 5 mg PO DAILY #30 tablet 01/05/18 [Rx] Allergies/Adverse Reactions: 3 Allergy/AdvReac Type Severity Reaction Status Date / Time No Known Allergies Allergy Verified 01/04/18 11:11 Date of admission: 01/04/18 10:13 Primary care physician: Donya Kim Consults: 01/04/18 12:24 Consult to Cardiac Rehabilitation-Phase1 [CONS] Routine Comment: Reason for Consult: CAD s/p ME Call Completed: Yes Discharging clinician: Glen Rocha Anticipated date of discharge: 01/05/18 - Constitutional Vitals: Temp Pulse Resp BP Pulse Ox 98.8 F 75 16 140/80 98 01/05/18 08:00 01/05/18 12:00 01/05/18 12:00 01/05/18 12:00 01/05/18 12:00 - Other Additional findings: GEN: No acute distress, A&Ox3 HEAD: Atraumatic, normocephalic EYES: Pupils symmetric, sclera white, conjunctiva pink HEART: RRR, normal S1 and S2, no murmurs LUNGS: Clear to auscultation bilaterally, no wheezes, rhonchi, or crackles ABD: Soft, nontender, nondistended, bowel sounds present EXT: No edema noted, pulses 2/4 NEURO: No focal deficits, cooperative with exam - Patient Status Disposition: Home, Self-Care Condition: Good Functional capacity at discharge: independent ambulation Overall status at discharge: patient is back to baseline - Discharge Instructions Follow Up With: Nelson Bunn CNP [Advanced Practice Nurse] - (Office will call patient with appt date/time. If they have not called by Saturday01/08/18, please call office to schedule appointment.) Donya Kim MD [Primary Care Provider] - Additional Instructions: Take your medications as prescribed Continue aspirin and Plavix for 1 year with no interruptions We strongly encourage smoking cessation - you may use nicotine patches or discuss other options with your primary care physician Follow-up with your primary care physician Follow-up with cardiology - Diet and Activity Activity: increase activity as tolerated Diet: low salt diet <Melissa Mcknight - Last Filed: 01/05/18 16:06> Date of Encounter: 01/05/18 - Discharge Diagnosis (1) Chest pain Status: Acute Qualifiers: Chest pain type: unspecified Qualified Code(s): R07.9 - Chest pain, unspecified (2) Elevated troponin Status: Acute (3) Hypertensive emergency Status: Acute (4) Obesity (BMI 30-39.9) Status: Chronic (5) Tobacco dependence Status: Chronic (6) DVT prophylaxis Status: Acute Hospital course: Mr. Hill is a 42 year old male - Time Spent with Patient Total time spent providing and/or coordinating discharge services: Date of admission: 01/04/18 10:13 Primary care physician: Donya Kim Consults: 01/04/18 12:24 Consult to Cardiac Rehabilitation-Phase1 [CONS] Routine Comment: Reason for Consult: CAD s/p ME Call Completed: Yes - Constitutional Vitals: Temp Pulse Resp BP Pulse Ox 98.8 F 80 16 121/70 98 01/05/18 08:00 01/05/18 14:00 01/05/18 14:00 01/05/18 14:00 01/05/18 14:00 - Attending Attestation I have seen and examined this patient independently. I have discussed with resident physician Dr. Rocha regarding the management plan. Agree with the documentation.
[2018-01-05 15:19] VITALS: BP 121/70
--- NOTE | 2018-01-06 09:00 | Electrocardiograph Report ---
[address] [place], [place] [address] Test Date: 2018-01-04 Pat Name: Sebastian Hill Department: 113 Room: 11 Gender: Ict Sales Representative: : 1975 Requested By: Yocasta Avila Order Number: [id number] Reading MD: Otis Heath Measurements Intervals [place] Rate: 56 P: 52 WA: 191 QRS: 89 QRSD: 116 T: 89 QT: 432 QTc: 423 Interpretive Statements SINUS BRADYCARDIA LEFT ATRIAL ENLARGEMENT INCOMPLETE RIGHT BUNDLE BRANCH BLOCK Electronically Signed On 01-06-2018 8:59:16 EDT by Otis Heath
--- NOTE | 2018-01-06 09:02 | Electrocardiograph Report ---
[place] [id number] Test Date: 2018-01-03 Pat Name: Sebastian Hill Department: 103 Room: 11 Gender: M Manager Community Development: EKP : 1975 Requested By: Jw Ríos Order Number: [id number] Reading MD: Jin Ayala Measurements Intervals [place] Rate: 78 P: 42 AR: 184 QRS: 57 QRSD: 104 T: 51 QT: 390 QTc: 423 Interpretive Statements SINUS RHYTHM NONSPECIFIC ST-T CHANGES Electronically Signed On 01-06-2018 9:01:08 EDT by Jin Ayala
== END 2018-01-05 16:18 | disposition home or self-care (01) | DRG 281 ==
LOC: EMEROO 22:03 → 3BNU 22:03 → ICNU 01-04 14:22
PROVIDERS: ADMIT Internal Medicine; ATTEND Student in an Organized Health Care Education/Training Program

== ENCOUNTER 2018-12-03 12:55 | Observation (INO) ==
[2018-12-03 13:54] LABS: Basophils % 0.5 %; Eosinophils # 0.1 K/mcL (0.0-0.6); Eosinophils % 1.4 %; Immature Granulocytes % 0.2 % (0-4); Lymphocytes # 2.2 K/mcL (0.6-4.6); Lymphocytes % 26.1 %; Mean Corpuscular HGB Conc 32.5 g/dL (31.6-35.5); Mean Corpuscular Hemoglobin 29.4 pg (28.0-33.3); Mean Corpuscular Volume 90.5 fL (83.0-100.0); Mean Platelet Volume 9.6 fL (9.4-12.4); Monocytes # 0.5 K/mcL (0.0-1.3); Monocytes % 6.3 %; Neutrophils # 5.5 K/mcL (1.6-8.9); Platelet Count 256 K/mcL (140-400); Red Blood Count 4.42 M/mcL (4.19-5.50); Red Cell Distribution Width 13.1 % (11.5-14.5); Segmented Neutrophils % 65.5 %; White Blood Count 8.5 K/mcL (4.3-11.1)
[2018-12-03 13:59] LABS: INR 1.1; Prothrombin Time 12.3 Seconds (9.4-12.1)
[2018-12-03 14:02] LABS: Activated Partial Thrombo Time 31.3 Seconds (26.0-36.0)
[2018-12-03 14:27] LABS: BUN/Creatinine Ratio 17 (6-26); Blood Urea Nitrogen 17 mg/dL (6-20); Calcium 9.2 mg/dL (8.6-10.3); Carbon Dioxide 25 mEq/L (23-29); Chloride 104 mEq/L (98-107); Glucose 127 mg/dL (70-105); Osmolality,Calculated 293 (280-300); Potassium 3.5 mEq/L (3.5-5.1); Sodium 140 mEq/L (136-145); Troponin I < 0.03 ng/mL (< 0.04); eGFR For African Americans > 60 (> 60); eGFR For Non-African Americans > 60 (> 60)
[2018-12-03] MEDS ORDERED: Aspirin 81 MG TAB.CHEW PO STA (14:47)
[2018-12-03] MEDS: Nitroglycerin 0.4 MG TAB.SUBL SL SCH ×3 (15:43→15:58)
[2018-12-03] MEDS ORDERED: Naloxone 0.4 MG/ML INJ IVP PRN (17:33)
[2018-12-03] MEDS ORDERED: Ondansetron 4 MG/2 ML VIAL IVP PRN (17:33)
[2018-12-03] MEDS ORDERED: *HR* HYDROcodone/Acet 5/325 mg TABLET PO PRN (17:33)
[2018-12-03] MEDS ORDERED: Acetaminophen 325 MG TABLET PO PRN (17:33)
[2018-12-03] MEDS ORDERED: Nitroglycerin 0.4 MG TAB.SUBL SL PRN (17:40)
[2018-12-04 01:22] LABS: Basophils # 0.1 K/mcL (0.0-0.2); Basophils % 0.7 %; Eosinophils # 0.3 K/mcL (0.0-0.6); Eosinophils % 3.5 %; Hematocrit 39.4 % (37.5-50.1); Hemoglobin 12.7 g/dL (12.9-16.9); Immature Granulocytes % 0.2 % (0-4); Lymphocytes # 3.5 K/mcL (0.6-4.6); Lymphocytes % 38.4 %; Mean Corpuscular HGB Conc 32.2 g/dL (31.6-35.5); Mean Corpuscular Hemoglobin 28.6 pg (28.0-33.3); Mean Corpuscular Volume 88.7 fL (83.0-100.0); Mean Platelet Volume 9.9 fL (9.4-12.4); Monocytes # 0.9 K/mcL (0.0-1.3); Monocytes % 10.4 %; Neutrophils # 4.2 K/mcL (1.6-8.9); Platelet Count 249 K/mcL (140-400); Red Blood Count 4.44 M/mcL (4.19-5.50); Red Cell Distribution Width 13.1 % (11.5-14.5); Segmented Neutrophils % 46.8 %; White Blood Count 9.1 K/mcL (4.3-11.1)
[2018-12-04 01:40] LABS: BUN/Creatinine Ratio 15 (6-26); Blood Urea Nitrogen 15 mg/dL (6-20); Calcium 8.9 mg/dL (8.6-10.3); Carbon Dioxide 26 mEq/L (23-29); Chloride 107 mEq/L (98-107); Chol/HDL Ratio 3.5 (0-4.9); Cholesterol 87 mg/dL (< 200); Glucose 125 mg/dL (70-105); HDL Cholesterol 25 mg/dL (40-59); LDL Cholesterol,Calculated 42 mg/dL (0-99); Osmolality,Calculated 292 (280-300); Potassium 3.4 mEq/L (3.5-5.1); Sodium 140 mEq/L (136-145); Triglycerides 99 mg/dL (< 150); eGFR For African Americans > 60 (> 60); eGFR For Non-African Americans > 60 (> 60)
[2018-12-04] MEDS: *HR* Heparin 5,000 UNIT/ML VIAL SQ SCH ×2 (05:13→16:37)
[2018-12-04] MEDS: Metoprolol XL (24 HR) Succ 50 MG TAB.ER.24H PO SCH (07:58)
[2018-12-04] MEDS: amLODIPine 5 MG TABLET PO SCH (07:58)
[2018-12-04] MEDS: Aspirin 81 MG TAB.CHEW PO SCH (07:58)
[2018-12-04] MEDS ORDERED: Isosorbide MONOnitrate (24 HR) 60 MG TAB.ER.24H PO SCH (09:00)
[2018-12-04] MEDS ORDERED: Isosorbide MONOnitrate (24 HR) 30 MG TAB.ER.24H PO SCH (09:00)
[2018-12-04] MEDS ORDERED: Isosorbide MONOnitrate (24 HR) 30 MG TAB.ER.24H PO ONE (10:01)
[2018-12-04] MEDS: Isosorbide MONOnitrate (24 HR) 60 MG TAB.ER.24H PO SCH (10:13)
[2018-12-05 01:33] LABS: Basophils # 0.1 K/mcL (0.0-0.2); Basophils % 0.6 %; Eosinophils # 0.3 K/mcL (0.0-0.6); Eosinophils % 3.1 %; Hemoglobin 12.7 g/dL (12.9-16.9); Immature Granulocytes % 0.2 % (0-4); Lymphocytes # 3.5 K/mcL (0.6-4.6); Lymphocytes % 42.1 %; Mean Corpuscular HGB Conc 32.6 g/dL (31.6-35.5); Mean Platelet Volume 10.1 fL (9.4-12.4); Monocytes # 0.8 K/mcL (0.0-1.3); Neutrophils # 3.8 K/mcL (1.6-8.9); Platelet Count 241 K/mcL (140-400); Red Blood Count 4.38 M/mcL (4.19-5.50); Red Cell Distribution Width 13.2 % (11.5-14.5); White Blood Count 8.4 K/mcL (4.3-11.1)
[2018-12-05 01:52] LABS: Blood Urea Nitrogen 12 mg/dL (6-20); Carbon Dioxide 25 mEq/L (23-29); Chloride 108 mEq/L (98-107); Glucose 113 mg/dL (70-105); Osmolality,Calculated 293 (280-300); Potassium 3.3 mEq/L (3.5-5.1); Sodium 141 mEq/L (136-145)
[2018-12-05 02:15] LABS: BUN/Creatinine Ratio 12 (6-26); eGFR For African Americans > 60 (> 60); eGFR For Non-African Americans > 60 (> 60)
[2018-12-05] MEDS: *HR* Heparin 5,000 UNIT/ML VIAL SQ SCH ×2 (05:28→15:59)
[2018-12-05] MEDS: Aspirin 81 MG TAB.CHEW PO SCH (07:54)
[2018-12-05] MEDS: Metoprolol XL (24 HR) Succ 50 MG TAB.ER.24H PO SCH (07:54)
[2018-12-05] MEDS: amLODIPine 5 MG TABLET PO SCH (07:54)
[2018-12-05] MEDS: Isosorbide MONOnitrate (24 HR) 60 MG TAB.ER.24H PO SCH (07:56)
[2018-12-05] MEDS ORDERED: Isosorbide MONOnitrate (24 HR) 60 MG TAB.ER.24H PO ONE (12:41)
[2018-12-05] MEDS ORDERED: *HR* LORazepam 0.5 MG TABLET PO ONE (14:53)
[2018-12-05] MEDS: Ranolazine 500 MG TAB.ER.12H PO SCH ×2 (15:58→21:42)
[2018-12-06] MEDS: *HR* Heparin 5,000 UNIT/ML VIAL SQ SCH (05:48)
[2018-12-06] MEDS: Aspirin 81 MG TAB.CHEW PO SCH (08:16)
[2018-12-06] MEDS: Ranolazine 500 MG TAB.ER.12H PO SCH (08:16)
[2018-12-06] MEDS: amLODIPine 5 MG TABLET PO SCH (08:17)
[2018-12-06] MEDS: Metoprolol XL (24 HR) Succ 50 MG TAB.ER.24H PO SCH (08:17)
[2018-12-06] MEDS ORDERED: Isosorbide MONOnitrate (24 HR) 60 MG TAB.ER.24H PO SCH (09:00)
[2018-12-06 10:45] LABS: BUN/Creatinine Ratio 11 (6-26); Blood Urea Nitrogen 12 mg/dL (6-20); Calcium 8.7 mg/dL (8.6-10.3); Carbon Dioxide 26 mEq/L (23-29); Chloride 104 mEq/L (98-107); Glucose 131 mg/dL (70-105); Osmolality,Calculated 292 (280-300); Potassium 3.8 mEq/L (3.5-5.1); Sodium 140 mEq/L (136-145); eGFR For African Americans > 60 (> 60); eGFR For Non-African Americans > 60 (> 60)
[2018-12-06 11:40] VITALS: BP 136/79
== END 2018-12-06 13:15 | disposition home or self-care (01) ==
LOC: EMEROOARM 12:55 → 3BNU 12:55
PROVIDERS: ADMIT Internal Medicine; ATTEND Internal Medicine